=== PATIENT | female | born 1950 | race Two or more races ===

== ENCOUNTER → 2018-05-10 06:00 | Outpatient (CLI) | payer OTHER ==
[~2018-05-10 06:00] MED LIST: CENTRUM SILVER1 EAC2 PO; HYDROCHLOROTH12.5 MG PO; LISINOPRIL40 MG PO; METFORMIN HCL500 MG PO; METOPROLOL SUCC50 MG PO; VITAMIN D32000 UNI1 PO; ZOCOR20 MG PO
== END | disposition home or self-care (01) ==
LOC: LAB 06:00 → ADM 09:15 → EDSTATUS 05-14 09:15 → CIR.AMB 05-14 09:15
DX: E03.8 Other specified hypothyroidism (principal); D68.8 Other specified coagulation defects; Z01.810 Encounter for preprocedural cardiovascular examination; Z01.811 Encounter for preprocedural respiratory examination; N95.0 Postmenopausal bleeding